=== PATIENT | female | born 1940 ===

== ENCOUNTER 2021-02-19 10:47 | Outpatient (CLI) | payer OTHER | END 2021-02-19 10:55 | disposition home or self-care (01) | LOC: SONOGRAMA 10:47 | PROVIDERS: ATTEND Pathology Anatomic Pathology & Clinical Pathology | DX: E04.1 Nontoxic single thyroid nodule (principal); E07.89 Other specified disorders of thyroid; D34 Benign neoplasm of thyroid gland ==